=== PATIENT | male | born 1960 | race Caucasian/White ===

== ENCOUNTER 2016-12-09 05:24 | Emergency (ER) | payer OTHER ==
[~2016-12-09] VITALS: Ht 180.3 cm; Wt 81.6 kg
[~2016-12-09 05:24] MED LIST: NORTRIPTYLINE H25 M2 PO; PANTOPRAZOLE SO40 M1 PO; ZOFRAN ODT4 MG PO
[2016-12-09 06:06] LABS: HEMOGLOBIN 16.3 g/dL (14.1-18.0); LYMPH # 1.8 K/mm3 (0.7-4.5); LYMPH % 14.6 % (10-50)
--- NOTE | 2016-12-09 06:43 | Emergency Room Report ---
History of Present Illness Time Seen by [id number] Presenting Problem in Triage Pt arrived:Walked Presenting Problem:REPORTS ABDOMINAL PAIN AROUND UMBILLICUS AND DANIELS FOR ABOUT A WEEK. 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 N Clinical Suspician of Infection? N Mental Status: 1 - Regular (Normal Baseline) Sepsis Risk:Low Sepsis Risk Have you (or family members/close friends) recently traveled outside the [place]? N If Yes, where/when: Have you had exposure to infectious disease within the past month? N TB? Other? Specify: Source patient, RN notes reviewed, old records Exam Limitations no limitations Comment this wm presents with rt sided abd pain with nausea - he has been seen earlier this month with similiar pain - no fever or rash and has had multiple hernia surg in past Cardiac Chest Pain Chest pain indicative of cardiac No Timing/Duration this evening Severity moderate ALLERGIES Coded Allergies: No Known Allergies (11/05/15) Home Medications Active Scripts Ondansetron (Zofran 4MG Odt) 4 MG PO Q8HP PRN NAUSEA AND VOMITING #10 ODT Prov: 11/25/16 Reported Medications Pantoprazole Sodium 40 MG PO DAILY #90 History Medical History General CAD? No Angina: No IN: No Hypertension? No Hyperlipidemia? No CHF? No DVT? No PE? No COPD? No Asthma? No Anemia? No GERD? No Gastric ulcers? Yes GI Bleed? Yes Hernia? Yes Thyroid Problems? No Hypothyroidism? No CVA? No Seizures? No Diabetes? No Renal Insuffiency? No End Stage Renal Disease? No UTI? No Stones? No BPH? No GB Disease: No Nephritic Syndrome? No Asplenia? No Hepatitis? No Sickle Cell Disease? No Arthritis? No Migraines? No Cataracts? No Glaucoma? No MRSA? No HIV? No TB? No Anxiety? No Depression? No Cancer? No Immunization Hx DT/Tetanus Unknown Surgical Hx Previous Surgery?Y 7 HERNIA REPAIRS APPEND Social History Smoking Hx Smoker: Current Every Day Smoker Tobacco: Yes Type Cigarettes Packs/day < 1 Pack Are you/the child exposed to second-hand smoke: Yes Alcohol Alcohol: No Drugs none Review of Systems All Other Systems Reviewed and Negative Constitutional see HPI, denies fever, other Eyes denies drainage ENT denies: ear discharge, epistaxis, throat pain. Respiratory denies cough, denies shortness of breath, denies wheezing Cardiovascular denies chest pain, denies syncope Gastrointestinal see HPI, abdominal pain, denies diarrhea, nausea, denies vomiting Genitourinary denies: dysuria, frequency, hesitancy, hematuria. Musculoskeletal denies back pain, denies joint pain, denies joint swelling, denies neck pain Skin denies rash Psychiatric/Neurological denies headache, denies seizure Physical Exam Vital Signs Vital Signs Date Time Temp Pulse Resp B/P Pulse O2 O2 Flow FiO2 Ox Delivery Rate 12/09 0650 68 20 136/97 99 12/09 0528 98.8 68 20 144/96 99 - WBC >12,000 or <4,000 or 10% bands? 2 or more SIRS Criteria Met? B/P:136/97 MAP:112 Creatinine >2.0? UA output<0.5ml/kg/hr for 2 hrs? Platelet count >100,000? Lactate >2.0mmol/1? INR >1.2 or PTT > than 60 sec? Evidence of Organ Dysfunction? Provider documented clinical suspician of infection? N Sepsis Criteria Count: 1 Sepsis Risk: Low Sepsis Risk General Appearance no apparent distress Eye Exam - bilateral eye PERRL, bilateral eye EOMI Ear, Nose, Throat normal ENT inspection Neck supple Respiratory Status No: respiratory distress. 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 No Results/Orders Laboratory Tests 12/09/16 0648: Urine Color YELLOW, Urine Appearance SL CLOUDY, Urine pH 6.0, Ur Specific [place] 1.020, Urine Protein NEGATIVE, Urine Ketones NEGATIVE, Urine Blood NEGATIVE, Urine Nitrate NEGATIVE, Urine Bilirubin NEGATIVE, Urine Urobilinogen 0.2, Ur Leukocyte Esterase 1+ H, Urine WBC 10-20, Urine Bacteria 2+, Urine Mucus 1+, Urine Glucose NEGATIVE 12/09/16 0545: Sodium 138, Potassium 3.8, Chloride 103, Carbon Dioxide 27, BUN 15, Creatinine 1.0, Estimated Creat Clear 98, Estimated GFR (MDRD) 78, Glucose 116 H, Calcium 8.9, Total Bilirubin 0.5, AST 9 L, ALT 19, Alkaline Phosphatase 104, Total Protein 7.3, Albumin 3.9, Globulin 3.4 H, Albumin/Globulin Ratio 1.1, Amylase 44, Lipase 143, WBC 12.3 H, RBC 5.15, Hgb 16.3, Hct 48.3, MCV 93.7, RDW 13.9, Plt Count 290, MPV 8.9, Gran % 74.0, Gran # 9.1 H, Lymphocytes % 14.6, Monocytes % 5.8, Eosinophils % 5.0, Basophils % 0.7, Lymphocytes # 1.8, Monocytes # 0.7, Eosinophils # 0.6 H, Basophils # 0.1, PUBS MCHC 33.7, MCH 31.5 H Current Medication Orders Sig/Jong Start time Last Medication Dose Route Stop Time Status Admin Levofloxacin 500 MG ONCE ONE 12/09 0730 AC PO 12/09 0731 Sodium Chloride 10 ML PRN PRN 12/09 0545 AC IV 12/10 0535 Orders Procedure Date/time Status DIET-NOTHING BY MOUTH 12/09 B Active CULTURE, URINE 12/[address] ABD & PELVIS W/O CONTRAST 12/[address] ABD/PELVIS REQ 12/10 535 Complete IV SALINE LOCK 12/10 535 Active URINALYSIS/COMPLETE 12/10 535 Complete LIPASE 12/10 535 Complete CBC WITH AUTO DIFF 12/10 535 Complete CHEM 12 PROFILE 12/10 535 Complete AMYLASE 12/10 535 Complete XRAY/CT/US XRAY/CT/US CT abdomen, pelvis CT interpretation by discussed w/radiologist Time results known: 717 CT Results abnormal (see report) Departure Departure Time of Disposition 717 Disposition DC Home or Self Care(routine) Clinical Impression Primary Impression: UTI (urinary tract infection) Qualifiers: Urinary tract infection type: acute cystitis Hematuria presence: without hematuria Qualified Code: N30.00 - Acute cystitis without hematuria Condition STABLE Patient Instructions DI for Urinary Tract Infection (UTI) Additional Instructions use meds and see pcp for follow up Discharge Counseling Counseled pt/family regarding diagnosis, test results, medications/RX, follow up needs Prescriptions Current Visit Scripts Ciprofloxacin HCl (Cipro 500MG TAB) 500 MG PO BID #14 TAB ED Critical Care Critical Care No at [id number]
[2016-12-09 06:53] LABS: URINE BILIRUBIN - DIPSTICK NEGATIVE (NEG); URINE BLOOD NEGATIVE (NEG)
[2016-12-09] MEDS ORDERED: CIPRO 500MG TA500 MG PO (07:19)
[2016-12-09 07:31] VITALS: BP 136/97
--- NOTE | 2016-12-09 18:49 | RADIOLOGY REPORT PS360 ---
CT ABD PELVIS W/O CONTRAST CLINICAL INDICATION: Periumbilical pain ABD PAIN ORDERING PHYSICIAN: Sarah Husain MD PATIENT AGE: 56 years COMPARISON: 11/25/2016 TECHNIQUE: Axial images obtained with sagittal and coronal reformats. PROCEDURE: Oral Contrast: None IV Contrast: None . FINDINGS: Lower thorax: No acute finding ABDOMEN: Liver: No masses or biliary dilatation. Gallbladder: Nondistended. No radio opaque stones. Pancreas: No masses or peripancreatic fluid collections. Spleen: Unremarkable. Adrenals: Unremarkable Kidneys/ureters: No masses. No renal calculi. No hydronephrosis. No perinephric fluid collections. No ureteral dilatation or obvious ureteral calculi. Stomach bowel: Nondistended. No obvious mass or thickening. Scattered diverticula are noted. No evidence of diverticulitis. Nonspecific bowel gas pattern Appendix: Prior appendectomy PELVIS: Reproductive: Mild prominence of the prostate Bladder: Nondistended. No obvious stones or masses. ABDOMEN & PELVIS: Peritoneum: No abnormal fluid collections. No obvious inflammatory changes. No free air. Lymph nodes: No enlarged lymph nodes apparent. Vasculature: No evidence of abdominal aortic aneurysm. No retroperitoneal hemorrhage evident. Bones: No acute fracture Abdominal wall: Isodense collections in the inguinal canals bilaterally probably related to prior inguinal hernia surgery. Please correlate clinically IMPRESSION: No acute intra-abdominal or pelvic pathology. No change isodense areas of the region of the inguinal canals and could be related to prior inguinal hernia repair. Seroma is also a consideration as well as adenopathy
[2016-12-17] MEDS ORDERED: ZITHROMAX Z PA250 MG PO (05:37)
[2016-12-17] MEDS ORDERED: PREDNISONE 20MG20 MG PO (05:37)
== END 2016-12-09 07:31 | disposition home or self-care (01) ==
LOC: ER 05:24
PROVIDERS: Emergency Medicine
DX: N30.00 Acute cystitis without hematuria (principal); Z72.0 Tobacco use

== ENCOUNTER 2017-02-25 21:26 | Emergency (ER) | payer OTHER ==
[~2017-02-25] VITALS: Ht 180.3 cm; Wt 77.1 kg
[~2017-02-25 21:26] MED LIST changes: +CIPRO 500MG TA500 MG PO; +PREDNISONE 20MG20 MG PO; +ZITHROMAX Z PA250 MG PO
[2017-02-25 21:30] VITALS: BP 128/82
--- OUTSIDE RECORDS SUMMARY | 2017-02-25 21:37 | External Medical Summary Rpt | CCD ---
Demographics Home Phone Preferred Language Faroese Marital Status Unknown Denominational Affiliation Unknown Race Unknown Ethnic Group Unknown Author Author , JULY MCDOWELL Address Unknown Phone [email or web address] Immunization Name Date Rout CVX Reac Dose Comm Prov Is Faci e tion ent ider Refu lity Give sed n PPV2 02-1 33 999 Hist SALMA No SALMA 3 2-20 oric TTHO TTHO 15 al MAS MAS Info rmat ion - Sour ce Unsp ecif ied Infl 01-0 Intr 88 999 Hist SALMA No SALMA uenz 1-20 amus oric TTHO TTHO a, 15 cula al MAS MAS UF r Info rmat ion - Sour ce Unsp ecif ied
--- OUTSIDE RECORDS SUMMARY | 2017-02-25 21:37 | External Medical Summary Rpt | CCD ---
Demographics Home Phone Preferred Language Comoran Marital Status Unknown Episcopal Affiliation Unknown Race Unknown Ethnic Group Unknown Author Author , JULY MCDOWELL Address Unknown Phone [email or web address] Immunization Name Date Rout CVX Reac Dose [...]
--- OUTSIDE RECORDS SUMMARY | 2017-02-25 21:37 | External Medical Summary Rpt | CCD ---
Author Author , JULY Organization JULY Address Unknown Phone .[place] Purpose Continuity of Care Document - through 2016 Problems Code Diagnosis DOS Provider Status G44.209 Tension-typ e headache, unspecified , not intractable J02.9 ACUTE PHARYNGITIS , UNSPECIFIED J06.9 Acute upper respiratory infection, unspecified J18.9 Pneumonia, unspecified organism J44.1 Chronic obstructive pulmonary disease with (acute) exacerbatio n K29.00 Acute gastritis without bleeding K58.8 Other irritable bowel syndrome K76.0 Fatty (change of) liver, not elsewhere classified M54.2 Cervicalgia N30.00 Acute cystitis without hematuria N39.0 URINARY TRACT INFECTION, SITE NOT SPECIFIED R10.10 Upper abdominal pain, unspecified R10.13 Epigastric pain R10.30 Lower abdominal pain, unspecified R10.84 Generalized abdominal pain R10.9 UNSPECIFIED ABDOMINAL PAIN R11.0 Nausea R11.10 VOMITING, UNSPECIFIED R19.7 DIARRHEA, UNSPECIFIED Z87.19 Personal history of other diseases of the digestive system
--- OUTSIDE RECORDS SUMMARY | 2017-02-25 21:37 | External Medical Summary Rpt | CCD ---
Author Author , JULY Organization JULY Address Unknown Phone [email or web address] Purpose Continuity of Care Document - through [...]
[2017-02-25] MEDS ORDERED: BENTYL10 MG PO (21:42)
[2017-02-25 21:49] LABS: HEMOGLOBIN 17.1 g/dL (14.1-18.0); LYMPH # 1.6 K/mm3 (0.7-4.5); LYMPH % 13.6 % (10-50)
[2017-02-25 22:18] LABS: BUN 16 mg/dL (7-18); GFR (ESTIMATED) 78 ML/MIN (>60)
--- NOTE | 2017-02-25 22:20 | Emergency Room Report ---
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 N Clinical Suspician of Infection? N Mental Status: 1 - Regular (Normal Baseline) Sepsis Risk:Low Sepsis Risk Have you (or family members/close friends) recently traveled outside the [place]? N If Yes, where/when: Have you had exposure to infectious disease within the past month? N TB? Other? Specify: Source patient, RN notes reviewed, family, EMS, old records Exam Limitations no limitations Comment pt with acute onset of lt sided chest pain tonight with no known ht disease Cardiac Chest Pain Chest pain indicative of cardiac Yes Timing/Duration 1-3 hours, gone now Severity/Quality moderate, sharp Location central Chest Pain Radiation arm(s) Activities at Onset light activity Nitro Today/Relief 0.4 mg x 1, provided by EMS, mild relief Aspirin Treatment Today 81 mg x 4, provided by EMS Beta ilan treatment today no beta ilan taken Cardiac risk factors + family history Prior Workup/Intervention no prior chest pain Timing/Duration this evening Severity moderate ALLERGIES Coded Allergies: No Known Allergies (11/05/15) Home Medications Reported Medications Pantoprazole Sodium 40 MG PO DAILY #90 Dicyclomine Hcl (Bentyl 10MG) 10 MG PO Q6HP PRN CRAMPS #180 History Medical History General CAD? No Angina: No MS: No Hypertension? No Hyperlipidemia? No CHF? No DVT? No PE? No COPD? No Asthma? No Anemia? No GERD? No Gastric ulcers? Yes GI Bleed? Yes Hernia? Yes Thyroid Problems? No Hypothyroidism? No CVA? No Seizures? No Diabetes? No Renal Insuffiency? No End Stage Renal Disease? No UTI? No Stones? No BPH? No GB Disease: No Nephritic Syndrome? No Asplenia? No Hepatitis? No Sickle Cell Disease? No Arthritis? No Migraines? No Cataracts? No Glaucoma? No MRSA? No HIV? No TB? No Anxiety? No Depression? No Cancer? No Immunization Hx DT/Tetanus Unknown Surgical Hx Previous Surgery?Y 7 HERNIA REPAIRS Appendectomy Social History Smoking Hx Smoker: Current Every Day Smoker Tobacco: Yes Type Cigarettes Packs/day < 1 Pack Alcohol Alcohol: No Drugs none Review of Systems All Other Systems Reviewed and Negative Constitutional denies fever Eyes denies drainage ENT denies: ear discharge, epistaxis, throat pain. Respiratory denies cough, denies shortness of breath, denies wheezing Cardiovascular chest pain, denies palpitations, denies syncope Gastrointestinal denies abdominal pain, denies vomiting Genitourinary denies: dysuria, frequency, hesitancy, hematuria. Musculoskeletal denies back pain, denies joint pain, denies neck pain Skin denies rash Psychiatric/Neurological denies headache, denies seizure Physical Exam Vital Signs Vital Signs Date Time Temp Pulse Resp B/P Pulse O2 O2 Flow FiO2 Ox Delivery Rate 02/26 0003 75 20 148/84 96 02/26 0000 98.1 86 20 135/84 97 02/25 2334 86 20 135/84 97 02/25 2250 73 20 120/57 97 02/25 2204 76 20 131/60 97 02/25 2130 98.1 77 20 128/82 96 - WBC >12,000 or <4,000 or 10% bands? 2 or more SIRS Criteria Met? B/P:148/84 MAP:97 Creatinine >2.0? UA output<0.5ml/kg/hr for 2 hrs? Platelet count >100,000? Lactate >2.0mmol/1? INR >1.2 or PTT > than 60 sec? Evidence of Organ Dysfunction? Provider documented clinical suspician of infection? N Sepsis Criteria Count: 1 Sepsis Risk: Low Sepsis Risk General Appearance no apparent distress Eye Exam - bilateral eye PERRL, bilateral eye EOMI Ear, Nose, Throat normal ENT inspection Neck supple Respiratory Status No: respiratory distress. Lung Sounds bilateral: lungs clear. 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 No Results/Orders Laboratory Tests 02/25/172217: Opiates Screen NEGATIVE, Urine Methadone Screen NEGATIVE, Barbiturates NEGATIVE, Phencyclidine Screen NEGATIVE, Amphetamines Screen NEGATIVE, Benzodiazepines Screen NEGATIVE, Cocaine Screen NEGATIVE, Marijuana (THC) Screen NEGATIVE, Urine Color YELLOW, Urine Appearance CLOUDY, Urine pH 6.0, Ur Specific [place] 1.025, Urine Protein 1+ H, Urine Ketones NEGATIVE, Urine Blood TRACE-INTACT, Urine Nitrate NEGATIVE, Urine Bilirubin NEGATIVE, Urine Urobilinogen 0.2, Ur Leukocyte Esterase NEGATIVE, Urine WBC 10-20, Ur Squamous Epith Cells OCC, Amorphous Sediment TRACE, Urine Glucose NEGATIVE 02/25/172134: Sodium 136, Potassium 4.0, Chloride 100, Carbon Dioxide 28, BUN 16, Creatinine 1.0, Estimated Creat Clear 92, Estimated GFR (MDRD) 78, Glucose 104, Calcium 9.1 , Total Bilirubin 0.5, AST 14 L, ALT 29, Alkaline Phosphatase 123 H, Creatine Kinase 64, CK-MB (CK-2) Rel Index 0.8, CK and CKMB Interp < 0.5, Troponin I < 0.02, Total Protein 7.7, Albumin 4.0, Globulin 3.7 H, Albumin/Globulin Ratio 1.1, WBC 11.7 H, RBC 5.60, Hgb 17.1, Hct 51.5, MCV 92.0, RDW 13.8, Plt Count 267, MPV 8.4, Gran % 77.1, Gran # 9.1 H, Lymphocytes % 13.6, Monocytes % 5.8, Eosinophils % 3.0, Basophils % 0.5, Lymphocytes # 1.6, Monocytes # 0.7, Eosinophils # 0.4, Basophils # 0.1, PUBS MCHC 33.3, MCH 30.6 Current Medication Orders Sig/Jong Start time Last Medication Dose Route Stop Time Status Admin Nitroglycerin 1 IN ONCE ONE 02/25 2230 DC 02/25 TP 02/25 Nitroglycerin 0 .STK-MED ONE 02/25 2222 DC .ROUTE Orders Procedure Date/time Status Decision to admit 02/25 2335 Active CULTURE, URINE 02/25 2218 Active URINALYSIS/COMPLETE 02/26 2156 Complete DRUG ABUSE SCREEN (TRIAGE) 02/26 2156 Complete 12 LEAD EKG-BESSON (INITIAL) 02/25 2135 Active ELECTROCARDIOGRAM REQUEST 02/25 2135 Active IV SALINE LOCK 02/25 2135 Active CBC WITH AUTO DIFF 02/25 2135 Complete CARDIAC ENZYMES 02/25 2135 Complete CHEM 12 PROFILE 02/25 2135 Complete CM/EKG CM/pad tufter Rhythm Normal Sinus Rhythm EKG non-spec. ST/Twave chgs XRAY/CT/US XRAY/CT/US XRAY chest XR interpretation by reviewed by me Xray Results normal/NAD GM Score for N-Stemi/Angina GM N-STEMI SCORE GM N-STEMI SCORE Response Value Age of patient Less than 65 yrs 0 Number of risk factors for CAD Presence of 3 or more 1 Prior coronary artery stenosis (seen in angiography) Less than 50% 0 ST-Segment deviation on ECG (>1 min) Absent 0 Prior aspirin intake No ASA in the last 7 days 0 Severe anginal chest pain No or 1 episode in 24h 0 Elevated cardiac markers(CK-MB or troponin) Absent 0 Total 1 Risk Stratification 0-2= Low Risk Patients Departure Departure Time of Disposition 0020 Disposition Against Medical Advice Clinical Impression Primary Impression: Chest pain Qualifiers: Chest pain type: precordial pain Qualified Code: R07.2 - Precordial pain Condition STABLE Patient Instructions DI for Chest Pain Additional Instructions return to ed if any problems and see pcp for follow up tuesday Discharge Counseling Counseled pt/family regarding diagnosis, test results, follow up needs ED Critical Care Critical Care No at 0021
--- NOTE | 2017-02-25 22:20 | Emergency Room Report ---
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 N Clinical Suspician of Infection? N Mental Status: 1 - Regular (Normal Baseline) Sepsis Risk:Low Sepsis Risk Have you (or family members/close friends) recently traveled outside the [place]? N If Yes, where/when: Have you had exposure to infectious disease within the past month? N TB? Other? Specify: Source patient, RN notes reviewed, family, EMS, old records Exam Limitations no limitations Comment pt with acute onset of lt sided chest pain tonight with no known ht disease Cardiac Chest Pain Chest pain indicative of cardiac Yes Timing/Duration 1-3 hours, gone now Severity/Quality moderate, sharp Location central Chest Pain Radiation arm(s) Activities at Onset light activity Nitro Today/Relief 0.4 mg x 1, provided by EMS, mild relief Aspirin Treatment Today 81 mg x 4, provided by EMS Beta ilan treatment today no beta ilan taken Cardiac risk factors + family history Prior Workup/Intervention no prior chest pain Timing/Duration this evening Severity moderate ALLERGIES Coded Allergies: No Known Allergies (11/05/15) Home Medications Reported Medications Pantoprazole Sodium 40 MG PO DAILY #90 Dicyclomine Hcl (Bentyl 10MG) 10 MG PO Q6HP PRN CRAMPS #180 History Medical History General CAD? No Angina: No SC: No Hypertension? No Hyperlipidemia? No CHF? No DVT? No PE? No COPD? No Asthma? No Anemia? No GERD? No Gastric ulcers? Yes GI Bleed? Yes Hernia? Yes Thyroid Problems? No Hypothyroidism? No CVA? No Seizures? No Diabetes? No Renal Insuffiency? No End Stage Renal Disease? No UTI? No Stones? No BPH? No GB Disease: No Nephritic Syndrome? No Asplenia? No Hepatitis? No Sickle Cell Disease? No Arthritis? No Migraines? No Cataracts? No Glaucoma? No MRSA? No HIV? No TB? No Anxiety? No Depression? No Cancer? No Immunization Hx DT/Tetanus Unknown Surgical Hx Previous Surgery?Y 7 HERNIA REPAIRS Appendectomy Social History Smoking Hx Smoker: Current Every Day Smoker Tobacco: Yes Type Cigarettes Packs/day < 1 Pack Alcohol Alcohol: No Drugs none Review of Systems All Other Systems Reviewed and Negative Constitutional denies fever Eyes denies drainage ENT denies: ear discharge, epistaxis, throat pain. Respiratory denies cough, denies shortness of breath, denies wheezing Cardiovascular chest pain, denies palpitations, denies syncope Gastrointestinal denies abdominal pain, denies vomiting Genitourinary denies: dysuria, frequency, hesitancy, hematuria. Musculoskeletal denies back pain, denies joint pain, denies neck pain Skin denies rash Psychiatric/Neurological denies headache, denies seizure Physical Exam Vital Signs Vital Signs Date Time Temp Pulse Resp B/P Pulse O2 O2 Flow FiO2 Ox Delivery Rate 02/26 0003 75 20 148/84 96 02/26 0000 98.1 86 20 135/84 97 02/25 2334 86 20 135/84 97 02/25 2250 73 20 120/57 97 02/25 2204 76 20 131/60 97 02/25 2130 98.1 77 20 128/82 96 - WBC >12,000 or <4,000 or 10% bands? 2 or more SIRS Criteria Met? B/P:148/84 MAP:97 Creatinine >2.0? UA output<0.5ml/kg/hr for 2 hrs? Platelet count >100,000? Lactate >2.0mmol/1? INR >1.2 or PTT > than 60 sec? Evidence of Organ Dysfunction? Provider documented clinical suspician of infection? N Sepsis Criteria Count: 1 Sepsis Risk: Low Sepsis Risk General Appearance no apparent distress Eye Exam - bilateral eye PERRL, bilateral eye EOMI Ear, Nose, Throat normal ENT inspection Neck supple Respiratory Status No: respiratory distress. Lung Sounds bilateral: lungs clear. Cardiovascular regular rate/rhythm, systolic murmur Peripheral Pulses Pulses normal Yes Gastrointestinal soft Extremities normal inspection Strength 4 Upper Ext (L), 4 Upper Ext (R), 4 Lower Ext (L), 4 Lower Ext (R) Neurologic alert, supervisor edging II-XII nml as tested, no motor/sensory deficits Reflexes Reflexes normal No Mental status normal mood/affect Skin intact Medical Decision Making LABS/Meds/Orders Pt receiving controlled substance in ED? No Results/Orders Laboratory Tests 02/25/172217: Opiates Screen NEGATIVE, Urine Methadone Screen NEGATIVE, Barbiturates NEGATIVE, Phencyclidine Screen NEGATIVE, Amphetamines Screen NEGATIVE, Benzodiazepines Screen NEGATIVE, Cocaine Screen NEGATIVE, Marijuana (THC) Screen NEGATIVE, Urine Color YELLOW, Urine Appearance CLOUDY, Urine pH 6.0, Ur Specific [place] 1.025, Urine Protein 1+ H, Urine Ketones NEGATIVE, Urine Blood TRACE-INTACT, Urine Nitrate NEGATIVE, Urine Bilirubin NEGATIVE, Urine Urobilinogen 0.2, Ur Leukocyte Esterase NEGATIVE, Urine WBC 10-20, Ur Squamous Epith Cells OCC, Amorphous Sediment TRACE, Urine Glucose NEGATIVE 02/25/172134: Sodium 136, Potassium 4.0, Chloride 100, Carbon Dioxide 28, BUN 16, Creatinine 1.0, Estimated Creat Clear 92, Estimated GFR (MDRD) 78, Glucose 104, Calcium 9.1 , Total Bilirubin 0.5, AST 14 L, ALT 29, Alkaline Phosphatase 123 H, Creatine Kinase 64, CK-MB (CK-2) Rel Index 0.8, CK and CKMB Interp < 0.5, Troponin I < 0.02, Total Protein 7.7, Albumin 4.0, Globulin 3.7 H, Albumin/Globulin Ratio 1.1, WBC 11.7 H, RBC 5.60, Hgb 17.1, Hct 51.5, MCV 92.0, RDW 13.8, Plt Count 267, MPV 8.4, Gran % 77.1, Gran # 9.1 H, Lymphocytes % 13.6, Monocytes % 5.8, Eosinophils % 3.0, Basophils % 0.5, Lymphocytes # 1.6, Monocytes # 0.7, Eosinophils # 0.4, Basophils # 0.1, PUBS MCHC 33.3, MCH 30.6 Current Medication Orders Sig/Jong Start time Last Medication Dose Route Stop Time Status Admin Nitroglycerin 1 IN ONCE ONE 02/25 2230 DC 02/25 TP 02/25 Nitroglycerin 0 .STK-MED ONE 02/25 2222 DC .ROUTE Orders Procedure Date/time Status Decision to admit 02/25 2335 Active CULTURE, URINE 02/25 2218 Active URINALYSIS/COMPLETE 02/26 2156 Complete DRUG ABUSE SCREEN (TRIAGE) 02/26 2156 Complete 12 LEAD EKG-BESSON (INITIAL) 02/25 2135 Active ELECTROCARDIOGRAM REQUEST 02/25 2135 Active IV SALINE LOCK 02/25 2135 Active CBC WITH AUTO DIFF 02/25 2135 Complete CARDIAC ENZYMES 02/25 2135 Complete CHEM 12 PROFILE 02/25 2135 Complete CM/EKG 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 ST/Twave chgs XRAY/CT/US XRAY/CT/US XRAY chest XR interpretation by reviewed by me Xray Results normal/NAD GM Score for N-Stemi/Angina GM N-STEMI SCORE GM N-STEMI SCORE Response Value Age of patient Less than 65 yrs 0 Number of risk factors for CAD Presence of 3 or more 1 Prior coronary artery stenosis (seen in angiography) Less than 50% 0 ST-Segment deviation on ECG (>1 min) Absent 0 Prior aspirin intake No ASA in the last 7 days 0 Severe anginal chest pain No or 1 episode in 24h 0 Elevated cardiac markers(CK-MB or troponin) Absent 0 Total 1 Risk Stratification 0-2= Low Risk Patients Departure Departure Time of Disposition 0020 Disposition Against Medical Advice Clinical Impression Primary Impression: Chest pain Qualifiers: Chest pain type: precordial pain Qualified Code: R07.2 - Precordial pain Condition STABLE Patient Instructions DI for Chest Pain Additional Instructions return to ed if any problems and see pcp for follow up tuesday Discharge Counseling Counseled pt/family regarding diagnosis, test results, follow up needs ED Critical Care Critical Care No at 0021
[2017-02-25 22:27] LABS: URINE BLOOD TRACE-INTACT (NEG)
[2017-02-25 22:31] LABS: URINE BILIRUBIN - DIPSTICK NEGATIVE (NEG); URINE SQUAMOUS CELLS OCC #/hpf (OCC)
[2017-02-25 22:33] LABS: AMPHETAMINES/METAMPHETAMINES NEGATIVE ng/mL (<1000)
--- NOTE | 2017-02-25 23:00 | RADIOLOGY REPORT PS360 ---
CHEST-PORTABLE HISTORY: Chest pain CP ORDERING PHYSICIAN: Sarah Husain MD PATIENT AGE: 56 years COMPARISON: None available FINDINGS: The cardiomediastinal silhouette and pulmonary vascularity are within normal limits. The lungs are clear without infiltrates, suspicious nodules, or pleural effusions. No acute bony abnormalities. IMPRESSION: Negative chest, no acute finding
--- OUTSIDE RECORDS SUMMARY | 2017-02-25 23:47 | External Medical Summary Rpt | CCD ---
Author Author , JULY Organization JULY Address Unknown Phone [email or web address] Purpose Continuity of Care Document - through [...]
--- OUTSIDE RECORDS SUMMARY | 2017-02-25 23:47 | External Medical Summary Rpt | CCD ---
Author Author , JULY Organization JULY Address Unknown Phone [email or web address] Purpose Continuity of Care Document - through [...]
--- OUTSIDE RECORDS SUMMARY | 2017-02-25 23:47 | External Medical Summary Rpt | Continuity of Care Document ---
Author Author Organization Address Unknown Phone Unavailable Care Team Providers Care Audioprosthologist Name Role Phone , Unavailable Unavailable EMS Current Medications Section EMS Allergies and Adverse Reactions EMS Past Medical History Medications Administered Section EMS Procedures Performed EMS Vital Signs EMS Patient Care Report Narrative Dispatched for 56 YOM c/o chest pain and L arm numbness. Pt described pain as feeling someone setting on his chest. Rated it a 6 on a 10 scale. Pt only Hx is bleeding ulcers in 2014. Pt was ambulatory upon our arrival, pt walked to ambulance on his own. Placed pt on monitor and checked vital signs pt was hypertensive BP 155/103 Performed a 12 lead showing a Sinus rhythm. Administered 4 X 81mg baby asa and one nitro spray. Established IV L hand with a 20ga, saline lock. While enroute Pt's chest pain went from 6 to 4, Transported pt to [facility] per family's request.
--- OUTSIDE RECORDS SUMMARY | 2017-02-25 23:47 | External Medical Summary Rpt ---
Author Author JULY Jimenez, JULY Production Organization [employer]UL[employer] Address Unknown Phone Unavailable
--- OUTSIDE RECORDS SUMMARY | 2017-02-25 23:47 | External Medical Summary Rpt | CCD ---
Demographics Home Phone Preferred Language Citizen Of [place] Marital Status Unknown Anabaptist Affiliation Unknown Race Unknown Ethnic Group Unknown Author Author , JULY Organization JULY Address Unknown Phone [email or web address] Immunization Name Date Rout CVX Reac Dose [...]
--- OUTSIDE RECORDS SUMMARY | 2017-02-25 23:47 | External Medical Summary Rpt | CCD ---
Demographics Home Phone Preferred Language Iranian Marital Status Unknown Islam Affiliation Unknown Race Unknown Ethnic Group Unknown Author Author , JULY Organization JULY Address Unknown Phone [email or web address] Immunization Name Date Rout CVX Reac Dose [...]
--- OUTSIDE RECORDS SUMMARY | 2017-02-25 23:47 | External Medical Summary Rpt | Continuity of Care Document ---
Author Author Organization Address Unknown Phone Unavailable Care Team Providers Care Senior Science Consultant Name Role Phone , Unavailable Unavailable EMS [...] from 6 to 4, Transported pt to [facility] per family's request.
[2017-02-26 00:03] VITALS: BP 148/84
== END 2017-02-26 00:22 | disposition left against medical advice (07) ==
LOC: ER → 2ND 23:45 → ER 23:45
PROVIDERS: Emergency Medicine
DX: R07.2 Precordial pain (principal); F17.210 Nicotine dependence, cigarettes, uncomplicated

== ENCOUNTER 2017-03-17 05:43 | Emergency (ER) | payer OTHER ==
[~2017-03-17] VITALS: Ht 180.3 cm; Wt 77.1 kg
[~2017-03-17 05:43] MED LIST changes: +BENTYL10 MG PO
--- OUTSIDE RECORDS SUMMARY | 2017-03-17 06:04 | External Medical Summary Rpt | Continuity of Care Document ---
Author Author Organization Address Unknown Phone Unavailable Care Team Providers Care It Investment/Portfolio Manager Name Role Phone , Unavailable Unavailable EMS [...] from 6 to 4, Transported pt to [facility] per family's request.
--- OUTSIDE RECORDS SUMMARY | 2017-03-17 06:04 | External Medical Summary Rpt | Continuity of Care Document ---
Author Author Organization Address Unknown Phone Unavailable Care Team Providers Care Audit Manager Name Role Phone , Unavailable Unavailable [...] Transported pt to [facility] per family's request.
--- OUTSIDE RECORDS SUMMARY | 2017-03-17 06:04 | External Medical Summary Rpt | Continuity of Care Document ---
Author Author Organization Address Unknown Phone Unavailable Care Team Providers Care It Network Administrator Name Role Phone , Unavailable Unavailable EMS [...] from 6 to 4, Transported pt to [facility] per family's request.
--- OUTSIDE RECORDS SUMMARY | 2017-03-17 06:04 | External Medical Summary Rpt | Continuity of Care Document ---
Author Author Organization Address Unknown Phone Unavailable Care Team Providers Care Research Test Engine Operator Name Role Phone , Unavailable Unavailable EMS [...] from 6 to 4, Transported pt to [facility] per family's request.
--- OUTSIDE RECORDS SUMMARY | 2017-03-17 06:06 | External Medical Summary Rpt | CCD ---
Demographics Preferred Language Sammarinese Marital Status Unknown Baptism Affiliation Unknown Race Unknown Ethnic Group Unknown Author Author , JULY MCDOWELL Address Unknown Phone Immunization Unable to retrieve immunization data due to connection failure with Immunization Registry. Please try again later.
--- OUTSIDE RECORDS SUMMARY | 2017-03-17 06:06 | External Medical Summary Rpt | CCD ---
Demographics Preferred Language Swazi Marital Status Unknown Sabianist Affiliation Unknown Race Unknown Ethnic Group Unknown Author Author , JULY MCDOWELL Address Unknown Phone Immunization Unable to retrieve immunization data due to connection failure with Immunization Registry. Please try again later.
--- OUTSIDE RECORDS SUMMARY | 2017-03-17 06:06 | External Medical Summary Rpt | CCD ---
Author Author , JULY Organization JULY Address Unknown Phone [email or web address] Purpose Continuity of Care Document - 07-08-2014 through 2016 Problems Code Diagnosis DOS Provider Status D72.829 Elevated 07-08-2014 white blood cell count, unspecified G44.209 Tension-typ e headache, unspecified , not intractable J02.0 Streptococc al pharyngitis J02.9 Acute pharyngitis , unspecified J06.9 Acute upper respiratory infection, unspecified J18.9 Pneumonia, unspecified organism J44.1 Chronic obstructive pulmonary disease with (acute) exacerbatio n K29.00 Acute gastritis without bleeding K58.8 Other irritable bowel syndrome K76.0 Fatty (change of) liver, not elsewhere classified M54.2 Cervicalgia N30.00 Acute cystitis without hematuria N39.0 URINARY TRACT INFECTION, SITE NOT SPECIFIED R07.9 CHEST PAIN, UNSPECIFIED R10.10 Upper abdominal pain, unspecified R10.13 Epigastric pain R10.30 Lower abdominal pain, unspecified R10.84 Generalized abdominal pain R10.9 UNSPECIFIED ABDOMINAL PAIN R11.0 Nausea R11.10 VOMITING, UNSPECIFIED R19.7 DIARRHEA, UNSPECIFIED Z53.20 PROC/TRTMT NOT CRD OUT BEC PT DECISION FOR UNSP REASONS Z87.19 Personal history of other diseases of the digestive system Results Labs Lab Lab Date Result Refere Interp Status Commen Order Detail nces retati t Range on BLOOD CULTURE (03-08-2017 04:38) Bacteri No complet a 017 Growth ed identif 04:38 at 120 ied in hours. Blood by Culture INFLUENZA A/B ANTIGENS (03-08-2017 03:51) Comment: Negative or Invalid results in patients with high clinical suspicion should be verified with RT-PCR, available as Respiratory Viral Mini Panel ([id number]) in [facility]. Comment: The WHO recommends molecular testing (Respiratory Viral DNA Test) during periods of low influenza activity instead of rapid tests. Should rapid tests be used, then both positive and negative test results should be confirmed by a molecular method. T Influen Not Not complet za 017 Detecte Detecte ed virus A 03:51 d d Ag [Presen ce] in Unspeci fied specime n Influen Not Not complet za 017 Detecte Detecte ed virus B 03:51 d d Ag [Presen ce] in Unspeci fied specime n Lactic Acid (03-08-2017 03:47) Lactate 1.8 0.5-2.2 complet 017 mmol/L ed [Moles/ 03:47 volume] in Serum or Plasma Troponin-T (03-08-2017 03:47) Comment: Values > or = 0.01 ng/mL have been shown to have prognostic value. Troponi < 0.01 <0.01 complet n 017 ng/mL ed T.cardi 03:47 ac [Mass/v olume] in Serum or Plasma STREP A ANTIGEN (03-08-2017 03:29) Strepto Not Not complet coccus 017 Detecte Detecte ed pyogene 03:29 d d s Ag [Presen ce] in Unspeci fied specime n STREP A DNA (03-08-2017 03:29) Comment: Test methodology by DNA probe. The performance characteristics of this test were validated by [facility]. A negative result does not rule out the presence of Group A Streptococcus DNA in concentrations below the level of dete Strepto Not Not complet coccus 017 Detecte Detecte ed pyogene 03:29 d d s DNA [Presen ce] in Throat by Probe and target amplifi cation method Lipase Level (03-08-2017 02:35) Lipase 22 IU/L 13-60 complet [Enzyma 017 ed tic 02:35 activit y/volum e] in Serum or Plasma Troponin-T (03-08-2017 02:35) Comment: Values > or = 0.01 ng/mL have been shown to have prognostic value. Troponi < 0.01 <0.01 complet n 017 ng/mL ed T.cardi 02:35 ac [Mass/v olume] in Serum or Plasma BASIC METABOLIC PANEL (03-08-2017 02:35) Sodium 141 136-145 complet [Moles/ 017 mmol/L ed volume] 02:35 in Serum or Plasma Potassi 3.7 3.5-5.0 complet um 017 mmol/L ed [Moles/ 02:35 volume] in Serum or Plasma Chlorid 102 98-107 complet e 017 mmol/L ed [Moles/ 02:35 volume] in Serum or Plasma Carbon 21 22-29 complet dioxide 017 mmol/L ed , total 02:35 [Moles/ volume] in Serum or Plasma Anion 18 7-16 complet gap in 017 mmol/L ed Serum 02:35 or Plasma Calcium 9.3 8.6-10. complet 017 mg/dL 2 ed [Moles/ 02:35 volume] in Serum or Plasma Glucose 129 74-100 complet 017 mg/dL ed [Mass/v 02:35 olume] in Serum or Plasma Urea 12 6-20 complet nitroge 017 mg/dL ed n 02:35 [Mass/v olume] in Serum or Plasma Creatin 0.90 0.67-1. complet ine 017 mg/dL 30 ed [Mass/v 02:35 olume] in Serum or Plasma Glomeru 112 complet lar 017 mL/min/ ed filtrat 02:35 1.73 m2 ion rate/1. 73 sq M.predi cted by Creatin ine-bas ed formula (CKD-EP I) Glomeru 96 complet lar 017 mL/min/ ed filtrat 02:35 1.73 m2 ion rate/1. 73 sq M.predi cted by Creatin ine-bas ed formula (CKD-EP I) Comment: GFR Afr Am and GFR Non Afr Am calculated using CKD-EPI equation. Comment: GFR Category GFR(mL/min/1.73 m?) Kidney Function Comment: Comment: G1 >=90 Normal or high Comment: G2 60-89 Mildly decreased Comment: G3a 45-59 Mildly to moderately decreased Comment: G3b 30-44 Moderately to severely decreased Comment: G4 15-29 Severely decreased Comment: G5 <15 Kidney Failure Hepatic Function Panel (03-08-2017 02:35) Protein 7.0 6.4-8.3 complet 017 gm/dL ed [Mass/v 02:35 olume] in Serum or Plasma Albumin 4.1 3.5-5.2 complet 017 gm/dL ed [Mass/v 02:35 olume] in Serum or Plasma Bilirub < 0.2 0.0-0.3 complet in.dire 017 mg/dL ed ct 02:35 [Mass/v olume] in Serum or Plasma Bilirub 0.3 0.1-1.4 complet in.tota 017 mg/dL ed l 02:35 [Mass/v olume] in Serum or Plasma Asparta 8 IU/L <=40 complet te 017 ed aminotr 02:35 ansfera se [Enzyma tic activit y/volum e] in Serum or Plasma Alanine 9 IU/L <=41 complet 017 ed aminotr 02:35 ansfera se [Enzyma tic activit y/volum e] in Serum or Plasma Alkalin 100 40-129 complet e 017 IU/L ed phospha 02:35 tase [Enzyma tic activit y/volum e] in Serum or Plasma CBC WITH DIFF (03-08-2017 02:35) Leukocy 03-08- 26.1 4.0-11. complet lukasz 017 x10(3)/ 0 ed [#/volu 02:35 mcL me] in Blood by Automat ed count Erythro 03-08- 5.17 4.30-5. complet cytes 017 x10(6)/ 81 ed [#/volu 02:35 mcL me] in Blood by Automat ed count Hemoglo 16.2 13.5-17 complet bin 017 gm/dL .1 ed [Mass/v 02:35 olume] in Blood Hematoc 47.8 % 38.9-51 complet rit 017 .6 ed [Volume 02:35 Fractio n] of Blood by Automat ed count Erythro 92.5 fL 82.5-99 complet cyte 017 .8 ed mean 02:35 corpusc ular volume [Entiti c volume] by Automat ed count Erythro 31.3 pg 27.0-34 complet cyte 017 .3 ed mean 02:35 corpusc ular hemoglo bin [Entiti c mass] by Automat ed count Erythro 33.9 32.1-35 complet cyte 017 gm/dL .3 ed mean 02:35 corpusc ular hemoglo bin concent ration [Mass/v olume] by Automat ed count Erythro 13.9 % 11.5-15 complet cyte 017 .0 ed distrib 02:35 ution width [Ratio] by Automat ed count Platele 256 144-423 complet ts 017 x10(3)/ ed [#/volu 02:35 mcL me] in Blood by Automat ed count Platele 9.5 fL 6.8-10. complet t mean 017 8 ed volume 02:35 [Entiti c volume] in Blood by Automat ed count DIFFERENTIAL (03-08-2017 02:35) Neutrop 79 % complet hils.se 017 ed gmented 02:35 [#/volu me] in Blood by Manual count Lymphoc 10 % complet ytes/10 017 ed 0 02:35 leukocy lukasz in Blood by Manual count Monocyt 7 % complet es/100 017 ed leukocy 02:35 lukasz in Blood by Manual count Lymphoc 4 % <=10 complet ytes 017 ed Abnorma 02:35 l/100 leukocy lukasz in Blood by Manual count Neutrop 20.6 1.8-7.7 complet hils.se 017 x10(3)/ ed gmented 02:35 mcL [#/volu me] in Blood by Manual count Lymphoc 3.7 0.6-4.8 complet ytes 017 x10(3)/ ed [#/volu 02:35 mcL me] in Blood by Manual count Monocyt 1.8 0.0-1.3 complet es 017 x10(3)/ ed [#/volu 02:35 mcL me] in Blood by Manual count Erythro Normal complet cytes 017 ed [Morpho 02:35 logy] in Blood by Automat ed count Urinalysis with microscopy (02-25-2017 22:18) Urine CLOUDY CLEAR complet appeara 017 CLOUDY ed nce 22:18 L determi nation Amorpho TRACE NONE complet us 017 TRACE L ed sedimen 22:18 t detecti on in urine se Urine NEGATIV NEG complet total 017 E ed bilirub 22:18 NEGATIV in E L detecti on by test Comment: BILIRUBIN CONFIRMED WITH ICTOTEST Urine TRACE-I NEG complet blood 017 NTACT ed detecti 22:18 TRACE-I on NTACT L Urine YELLOW YELLOW complet color 017 YELLOW ed 22:18 L Glucose = NEG complet ur 017 NEGATIV ed test 22:18 E strip Urine NEGATIV NEG complet ketones 017 E ed 22:18 NEGATIV detecti E L on by mg/dL automat ed lukasz Mucus NEGATIV NEG complet detecti 017 E ed on in 22:18 NEGATIV urine E L sedimen t by lig Urine NEGATIV NEG complet nitrite 017 E ed 22:18 NEGATIV detecti E L on by test strip Urine = 6.0 5.0-8.5 complet pH 017 ed 22:18 Urine 1 + NEG complet protein 017 mg/dL ed 22:18 measure ment by automat ed t Urine = 1.025 1.005-1 complet specifi 017 .030 ed c 22:18 gravity measure ment [place] OCC OCC OCC complet s 017 L ed epithel 22:18 #/hpf ial cells detecti on in u Urine 02-25- 0.2 0.2 NEG complet urobili 017 L ed nogen 22:18 E.U./dL detecti on by test str Urine 11-10-2 10 - 20 O complet leukocy 017 ed lukasz 22:18 wbc/hpf count (number /volume ) Urine 9-analyte drugs of abuse screening (02-25-2017 22:18) Comment: Positive urine drug screen samples are stored for 7 days. Comment: Contact the Lab if confirmation of positives is needed. Urine NEGATIV <1000 complet ampheta 017 E ed mine 22:18 NEGATIV screeni E L ng test ng/mL Urine = <200 complet barbitu 017 NEGATIV ed rates 22:18 E ng/mL measure ment by screen Serum = 200 complet or 017 NEGATIV ng/mL ed plasma 22:18 E ng/mL benzodi azepine s measure m Cocaine = <300 complet 017 NEGATIV ed measure 22:18 E ng/g ment (mass/v olume) Methado = <300 complet ne 017 NEGATIV ed measure 22:18 E ng/mL ment (mass/v olume) Opiates = <300 complet 017 NEGATIV ed measure 22:18 E ng/mL ment (mass/v olume) Phencyc = <25 complet lidine 017 NEGATIV ed measure 22:18 E ng/mL ment (mass/v olume) 11-hydr NEGATIV <50 complet oxy 017 E ed delta-9 22:18 NEGATIV E L tetrahy ng/mL drocann abinol CBC w auto diff (02-25-2017 21:35) [place] % = 5.8 % 1.7-9.3 complet 017 ed 21:35 Automat = 8.4 7.4-10. complet ed 017 fl 4 ed blood 21:35 platele t mean volume josh Blood = 267 142-424 complet platele 017 K/mm3 ed t count 21:35 Red = 5.60 4.6-6.2 complet blood 017 M/mm3 ed cell 21:35 count Automat = 13.8 11.5-17 complet ed 017 % .5 ed erythro 21:35 cyte distrib ution width Blood 11-10-2 = 11.7 4.8-10. complet leukocy 017 K/MM3 8 ed lukasz 21:35 count (number /volume ) Automat = 0.1 0-0.2 complet ed 017 K/MM3 ed blood 21:35 basophi l count (count/ vo Baso % = 0.5 % 0.1-2.0 complet 017 ed 21:35 Automat = 0.4 0.0-0.4 complet ed 017 K/mm3 ed blood 21:35 eosinop hil count Automat = 3.0 % 0.1-12. complet ed 017 0 ed blood 21:35 eosinop hils/10 0 leukocy t Blood = 9.1 1.3-8.0 complet granulo 017 K/mm3 ed cytes 21:35 automat ed count (numb Granulo = 77.1 37.0-80 complet cyte 017 % .0 ed percent 21:35 age Blood = 51.5 42.0-52 complet hematoc 017 % .0 ed rit 21:35 (volume fractio n) Blood = 17.1 14.1-18 complet hemoglo 017 g/dL .0 ed bin 21:35 measure ment (mass/v olum Absolut = 1.6 0.7-4.5 complet e 017 K/mm3 ed lymphoc 21:35 yte count Lymphoc = 13.6 10-50 complet yte 017 % ed count, 21:35 blood, automat ed Mean = 30.6 27-31.2 complet corpusc 017 pg ed ular 21:35 hemoglo bin (MCH) determ Automat = 33.3 31.8-35 complet ed 017 g/dl .4 ed erythro 21:35 cyte mean corpusc ular h Automat = 92.0 82.2-97 complet ed 017 fl .8 ed erythro 21:35 cyte mean corpusc ular v Absolut = 0.7 0.1-1.0 complet e 017 K/mm3 ed monocyt 21:35 e count Cardiac enzymes (02-25-2017 21:35) Serum < 0.5 0.0-3.6 complet or 017 ng/mL ed plasma 21:35 creatin e kinase MB measu Serum = 64 39-308 complet or 017 U/L ed plasma 21:35 creatin e kinase measure m Serum < 0.02 0.00-0. complet or 017 ng/mL 06 ed plasma 21:35 troponi n i.cardi ac measu Serum = 0.8 0-4.0 complet or 017 U/L ed plasma 21:35 creatin e kinase MB (CK-M Comprehensive metabolic panel (02-25-2017 21:35) Serum = 136 136-145 complet sodium 017 mmoL/L ed measure 21:35 ment Serum = 14 15-37 complet or 017 U/L ed plasma 21:35 asparta te aminotr ansfera Comment: AST MAY BE FALSELY ELEVATED DUE TO SLIGHT HEMOLYSIS ALT = 29 12-78 complet (SGPT) 017 U/L ed ser/charlotte 21:35 s Protein = 7.7 6.4-8.2 complet total 017 gm/dL ed ser/charlotte 21:35 s Serum = 1.1 1.1-1.8 complet or 017 ed plasma 21:35 albumin /globul in mass ra Serum = 4.0 3.4-5.0 complet or 017 gm/dL ed plasma 21:35 albumin measure ment (mas Serum = 123 46-116 complet or 017 U/L ed plasma 21:35 alkalin e phospha tase josh Serum = 0.5 0.2-1.0 complet or 017 mg/dL ed plasma 21:35 total bilirub in measure m Serum = 16 7-18 complet or 017 mg/dL ed plasma 21:35 urea nitroge n measure men Serum = 9.1 8.5-10. complet or 017 mg/dL 1 ed plasma 21:35 calcium measure ment (mas Serum = 100 98-107 complet or 017 mmoL/L ed plasma 21:35 chlorid e measure ment (mo Carbon 11-10-2 = 28 21.0-32 complet dioxide 017 mmoL/L .0 ed 21:35 measure ment Serum 2 = 1.0 0.70-1. complet or 017 mg/dL 30 ed plasma 21:35 creatin ine measure ment ( Estimat = 92 50-200 complet ion of 017 ML/MIN ed creatin 21:35 ine renal clearan ce Estimat = 78 >60 complet ed 017 ML/MIN ed glomeru 21:35 lar filtrat ion rate (GF Comment: REFERENCE RANGE: >60 ML/MIN/1.73 SQUARE METERS Comment: If this patient is -Iraqi, then multiply the Comment: result by 1.210. Serum = 3.7 1.3-3.2 complet globuli 017 gm/dL ed n 21:35 measure ment (mass/v olume) Serum = 104 74-106 complet or 017 mg/dL ed plasma 21:35 glucose measure ment (mas Serum = 4.0 3.5-5.1 complet potassi 017 mmoL/L ed um 21:35 measure ment Comment: POTASSIUM MAY BE FALSELY ELEVATED DUE TO SLIGHT HEMOLYSIS
--- OUTSIDE RECORDS SUMMARY | 2017-03-17 06:06 | External Medical Summary Rpt | CCD ---
Author Author , JULY Organization JULY Address Unknown Phone [email or web address] Purpose Continuity of Care Document - 07-08-2014 [...] RT-PCR, available as Respiratory Viral Mini Panel ([id number]) in [facility] Comment: The WHO recommends molecular testing (Respiratory [...] characteristics of this test were validated by [facility]. A negative result does not [...] abinol CBC w auto diff (02-25-2017 21:35) Ward % = 5.8 % 1.7-9.3 complet 017 [...] SQUARE METERS Comment: If this patient is -Romanian, then multiply the Comment: result by 1.210. [...]
[2017-03-17 06:07] LABS: STREP SCREEN (RAPID) NEGATIVE
--- NOTE | 2017-03-17 06:24 | Emergency Room Report ---
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 N Clinical Suspician of Infection? N Mental Status: 1 - Regular (Normal Baseline) Sepsis Risk:Low Sepsis Risk Have you (or family members/close friends) recently traveled outside the [place]? N If Yes, where/when: Have you had exposure to infectious disease within the past month? N TB? Other? 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 No Angina: No CT: No Hypertension? No Hyperlipidemia? No CHF? No DVT? No PE? No COPD? No Asthma? No Anemia? No GERD? No Gastric ulcers? Yes GI Bleed? Yes Hernia? Yes Thyroid Problems? No Hypothyroidism? No CVA? No Seizures? No Diabetes? No Renal Insuffiency? No End Stage Renal Disease? No UTI? No Stones? No BPH? No GB Disease: No Nephritic Syndrome? No Asplenia? No Hepatitis? No Sickle Cell Disease? No Arthritis? No Migraines? No Cataracts? No Glaucoma? No MRSA? No HIV? No TB? No Anxiety? No Depression? No Cancer? No Immunization Hx DT/Tetanus Unknown Surgical Hx Previous Surgery?Y 7 HERNIA REPAIRS Appendectomy Social History Smoking Hx Smoker: Current Every Day Smoker Tobacco: Yes Type Cigarettes Packs/day < 1 Pack Alcohol Alcohol: No Drugs none Review of Systems All Other Systems Reviewed and Negative Constitutional see HPI, fever Eyes denies drainage ENT see HPI, nose congestion, throat pain. denies: ear pain, throat swelling. Respiratory see HPI, cough, denies wheezing Cardiovascular denies chest pain, denies syncope Gastrointestinal denies abdominal pain, denies diarrhea, denies vomiting Genitourinary denies: dysuria, frequency, hesitancy, hematuria. Musculoskeletal denies back pain, denies joint pain, denies joint swelling, denies neck pain Skin denies rash Psychiatric/Neurological denies headache, denies seizure Physical Exam Vital Signs Vital Signs Date Time Temp Pulse Resp B/P Pulse O2 O2 Flow FiO2 Ox Delivery Rate 03/17 0545 97.7 78 20 135/83 100 - WBC >12,000 or <4,000 or 10% bands? 2 or more SIRS Criteria Met? B/P:135/83 MAP:100 Creatinine >2.0? UA output<0.5ml/kg/hr for 2 hrs? Platelet count >100,000? Lactate >2.0mmol/1? INR >1.2 or PTT > than 60 sec? Evidence of Organ Dysfunction? Provider documented clinical suspician of infection? N Sepsis Criteria Count: 1 Sepsis Risk: Low Sepsis Risk General Appearance no apparent distress Eye Exam - bilateral eye PERRL, bilateral eye EOMI Ear, Nose, Throat pharyngeal erythema Neck supple Respiratory Status No: respiratory distress. Lung Sounds bilateral: rhonchi. Cardiovascular regular rate/rhythm, no murmur Peripheral Pulses Pulses normal Yes Gastrointestinal soft Extremities normal inspection Strength 4 Upper Ext (L), 4 Upper Ext (R), 4 Lower Ext (L), 4 Lower Ext (R) Neurologic alert, straightener hand II-XII nml as tested, no motor/sensory deficits Reflexes Reflexes normal No Mental status normal mood/affect Skin intact Medical Decision Making LABS/Meds/Orders Pt receiving controlled substance in ED? No Results/Orders Laboratory Tests 03/17/17 0550: Influenza Type A Ag NOT DETECTED, Influenza Type B Ag NOT DETECTED Orders Procedure Date/time Status CULTURE, THROAT 03/17 0550 Active STREP SCREEN THROAT 03/17 0547 Complete INFLUENZA A&B ANTIGENS 03/17 547 Complete Departure Departure Time of Disposition 0624 Disposition DC Home or Self Care(routine) Clinical Impression Primary Impression: Bronchitis Condition STABLE Patient Instructions DI for Cough -- Adult Additional Instructions fluids and see pcp for follow up Discharge Counseling Counseled pt/family regarding diagnosis, test results, medications/RX, follow up needs Prescriptions Current Visit Scripts BENZONATATE (Benzonatate) 100 MG PO TID #21 CAP Prednisone (Prednisone 20MG) 20 MG PO BID #10 TAB CEPHALEXIN (Keflex 500MG Capsule) 500 MG PO Q8H #21 CAP ED Critical Care Critical Care No at 0630
--- NOTE | 2017-03-17 06:24 | Emergency Room Report ---
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 N Clinical Suspician of Infection? N Mental Status: 1 - Regular (Normal Baseline) Sepsis Risk:Low Sepsis Risk Have you (or family members/close friends) recently traveled outside the [place]? N If Yes, where/when: Have you had exposure to infectious disease within the past month? N TB? Other? 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 No Angina: No [place]: No Hypertension? No Hyperlipidemia? No CHF? No DVT? No PE? No COPD? No Asthma? No Anemia? No GERD? No Gastric ulcers? Yes GI Bleed? Yes Hernia? Yes Thyroid Problems? No Hypothyroidism? No CVA? No Seizures? No Diabetes? No Renal Insuffiency? No End Stage Renal Disease? No UTI? No Stones? No BPH? No GB Disease: No Nephritic Syndrome? No Asplenia? No Hepatitis? No Sickle Cell Disease? No Arthritis? No Migraines? No Cataracts? No Glaucoma? No MRSA? No HIV? No TB? No Anxiety? No Depression? No Cancer? No Immunization Hx DT/Tetanus Unknown Surgical Hx Previous Surgery?Y 7 HERNIA REPAIRS Appendectomy Social History Smoking Hx Smoker: Current Every Day Smoker Tobacco: Yes Type Cigarettes Packs/day < 1 Pack Alcohol Alcohol: No Drugs none Review of Systems All Other Systems Reviewed and Negative Constitutional see HPI, fever Eyes denies drainage ENT see HPI, nose congestion, throat pain. denies: ear pain, throat swelling. Respiratory see HPI, cough, denies wheezing Cardiovascular denies chest pain, denies syncope Gastrointestinal denies abdominal pain, denies diarrhea, denies vomiting Genitourinary denies: dysuria, frequency, hesitancy, hematuria. Musculoskeletal denies back pain, denies joint pain, denies joint swelling, denies neck pain Skin denies rash Psychiatric/Neurological denies headache, denies seizure Physical Exam Vital Signs Vital Signs Date Time Temp Pulse Resp B/P Pulse O2 O2 Flow FiO2 Ox Delivery Rate 03/17 0545 97.7 78 20 135/83 100 - WBC >12,000 or <4,000 or 10% bands? 2 or more SIRS Criteria Met? B/P:135/83 MAP:100 Creatinine >2.0? UA output<0.5ml/kg/hr for 2 hrs? Platelet count >100,000? Lactate >2.0mmol/1? INR >1.2 or PTT > than 60 sec? Evidence of Organ Dysfunction? Provider documented clinical suspician of infection? N Sepsis Criteria Count: 1 Sepsis Risk: Low Sepsis Risk General Appearance no apparent distress Eye Exam - bilateral eye PERRL, bilateral eye EOMI Ear, Nose, Throat pharyngeal erythema Neck supple Respiratory Status No: respiratory distress. Lung Sounds bilateral: rhonchi. 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 No Results/Orders Laboratory Tests 03/17/17 0550: Influenza Type A Ag NOT DETECTED, Influenza Type B Ag NOT DETECTED Orders Procedure Date/time Status CULTURE, THROAT 03/17 0550 Active STREP SCREEN THROAT 03/17 0547 Complete INFLUENZA A&B ANTIGENS 03/17 547 Complete Departure Departure Time of Disposition 0624 Disposition DC Home or Self Care(routine) Clinical Impression Primary Impression: Bronchitis Condition STABLE Patient Instructions DI for Cough -- Adult Additional Instructions fluids and see pcp for follow up Discharge Counseling Counseled pt/family regarding diagnosis, test results, medications/RX, follow up needs Prescriptions Current Visit Scripts BENZONATATE (Benzonatate) 100 MG PO TID #21 CAP Prednisone (Prednisone 20MG) 20 MG PO BID #10 TAB CEPHALEXIN (Keflex 500MG Capsule) 500 MG PO Q8H #21 CAP ED Critical Care Critical Care No at 0630
[2017-03-17] MEDS ORDERED: TESSALON PERLE100 MG PO (06:30)
[2017-03-17] MEDS ORDERED: PREDNISONE 20MG20 MG PO (06:30)
[2017-03-17] MEDS ORDERED: KEFLEX 500MG.500 MG PO (06:30)
[2017-03-17 06:39] VITALS: BP 135/83
== END 2017-03-17 06:40 | disposition home or self-care (01) ==
LOC: ER 05:43
PROVIDERS: Emergency Medicine
DX: J20.9 Acute bronchitis, unspecified (principal); F17.210 Nicotine dependence, cigarettes, uncomplicated